=== PATIENT | male | born 1990 | race Caucasian/White ===

== ENCOUNTER 2025-01-24 17:16 | Emergency (ER) | payer BC ==
--- NOTE | 2025-01-24 19:03 | RAD REPORT ---
EXAMINATION: US LEFT LOWER EXTREMITY VENOUS DOPPLER CLINICAL INDICATION: [facility] MAIN Left Leg Pain;Swelling Bed Name: [id number] Y TECHNIQUE: Complete bilateral duplex sonography of the LEFT lower extremity veins was performed. The examination included compression for vein patency, color Doppler imaging and flow augmentation in response to distal compression of the distal external iliac, common femoral, femoral, popliteal, tibi al, and great and small saphenous veins. COMPARISON: No prior exam. FINDINGS: Duplex sonography testing of the veins of the LEFT lower extremity was performed. Color flow imaging shows all veins to be compressible with [id number] color filling. Pulsatile and phasic flow is present within all lower extremity deep and superficial veins examined. IMPRESSION: No evidence of deep venous thrombosis.
--- NOTE | 2025-01-24 19:08 | EDPHYS ---
Physician Documentation [facility] Name: Francisco Means Age: 34 yrs Sex: Male : 1990 Arrival Date: 01/24/2025 Time: 17:16 Bed 12 Private MD: ED Physician Jack Stallings HPI: 01/24 17:43 This 34 yrs old Male presents to ER via Ambulatory with complaints of Leg dr5 Swelling. 17:43 Onset: The symptoms/episode began/occurred 4 day(s) ago. Patient is a 34 year old male dr5 with no past medical history coming in with left knee and left lower leg pain that's been going on for the past 3 days after working out his legs at the gym. Patient denies shortness of breath, chest pain, abdominal pain, nausea, vomiting, diarrhea.. Historical: - Allergies: 17:24 No Known Allergies; dd2 - PMHx: 17:24 None; dd2 - PSHx: 17:24 None; dd2 - Immunization history:: Adult Immunizations up to date. - Infectious Disease History:: Denies. - Social history:: Smoking status: Patient reports the use of cigarette tobacco products, denies chronic smoking, but will smoke occasionally. ROS: 17:43 Constitutional: as per hpi dr5 Exam: 17:43 Constitutional: This is a well developed, well nourished patient who is awake, alert, dr5 and in no acute distress. Head/Face: Normocephalic, atraumatic. Eyes: Pupils equal round and reactive to light, extra-ocular motions intact. Lids and lashes normal. Conjunctiva and sclera are non-icteric and not injected. Cornea within normal limits. Periorbital areas with no swelling, redness, or edema. Neck: Trachea midline, no thyromegaly or masses palpated, and no cervical lymphadenopathy. Supple, full range of motion without nuchal rigidity, or vertebral point tenderness. No Meningismus. Chest/axilla: Normal chest wall appearance and motion. Nontender with no deformity. No lesions are appreciated. Cardiovascular: Regular rate and rhythm with a normal S1 and S2. Normal PMI, no JVD. No pulse deficits. Respiratory: Lungs have equal breath sounds bilaterally, clear to auscultation. No rales, rhonchi or wheezes noted. No increased work of breathing, no retractions or nasal flaring. Back: No spinal tenderness. No costovertebral tenderness. Full range of motion. Skin: Warm, dry with normal turgor. Normal color with no rashes, no lesions, and no evidence of cellulitis. Neuro: Awake and alert, GCS 15, oriented to person, place, time, and situation. Cranial nerves II-XII grossly intact. Motor strength 5/5 in all extremities. Sensory grossly intact. Cerebellar exam normal. Normal gait. 17:43 Musculoskeletal/extremity: Extremities: grossly normal except: noted in the medial aspect of left knee, medial aspect of left calf, left medial ankle and medial aspect of left foot: pain, swelling, ROM: no acute changes, intact in all extremities, Circulation is intact in all extremities. Sensation intact. Vital Signs: 17:24 BP 148 / 90; Pulse 95; Resp 16; Temp 98.6; Pulse Ox 100% ; Weight 77.11 kg; Height 5 dd2 ft. 11 in. ; Pain 4/10; 19:14 BP 137 / 85; Pulse 84; Resp 16; Pulse Ox 100% ; dd2 17:24 Body Mass Index 23.71 (77.11 kg, 180.34 cm) dd2 17:24 Pain Scale: Adult dd2 [place] Coma Score: 19:14 Eye Response: spontaneous(4). Verbal Response: oriented(5). Motor Response: obeys dd2 commands(6). Total: 15. MDM: 17:25 Medical Screening Exam initiated dr5 19:16 Differential Diagnosis Muscle strain, DVT, contusion, Alba's cyst. Data reviewed: dr5 vital signs, nurses notes, radiologic studies, ultrasound. Consideration of Admission/Observation Escalation of care including admission/observation considered. Escalation considered patient not have DVT in left leg. I considered the following discharge prescriptions or medication management in the emergency department I discussed and recommended Over The Counter medications. Care significantly affected by the following Social Determinants of Health: Poor access to healthcare and/or lack of insurance, Poor access to transportation, Problems related to employment. Counseling: I had a detailed discussion with the patient and/or guardian regarding the historical points, exam findings, and any diagnostic results supporting the discharge/admit diagnosis, the presence of at least one elevated blood pressure reading (>120/80) during this emergency department visit, radiology results, the need for outpatient follow up, for definitive care, a family practitioner, to return to the emergency department if symptoms worsen or persist or if there are any questions or concerns that arise at home. Special discussion: I discussed with the patient/guardian in detail that at this point there is no indication for admission to the hospital. It is understood, however, that if the symptoms persist or worsen the patient needs to return immediately for re-evaluation. Based on the history and exam findings, there is no indication for further emergent testing or inpatient evaluation. I discussed with the patient/guardian the need to see the primary care provider for further evaluation of the symptoms. ED course: No DVT noted on ultrasound. Recommended alternating Tylenol and Motrin as needed for pain and fever and swelling. All questions answered. Strict ER precautions given. 01/24 17:29 Order name: US Extremity Venous Unilateral Ltd; Complete Time: 19:08 dr5 Administered Medications: No medications were administered Disposition Summary: 01/24/25 19:08 Discharge Ordered Notes: Location: Home dr5 Condition: Stable dr5 Diagnosis - Pain in left leg dr5 Followup: dr5 - With: Emergency Department - When: As needed - Reason: Worsening of condition Followup: dr5 - With: Private Physician - When: 1 - 2 days - Reason: Recheck today's complaints, Continuance of care, Re-evaluation by your physician Discharge Instructions: - Discharge Summary Sheet dr5 - Musculoskeletal Pain dr5 - RICE Therapy for Routine Care of Injuries dr5 Forms: - Medication Reconciliation Form dr5 - Patient Portal Instructions dr5 - Leadership Thank You Letter dr5 Prescriptions: - Ibuprofen 800 mg Oral Tablet - take 1 tablet ORAL route every 12 hours As needed take with food; 20 tablet; dr5 Refills: 0, Product Selection Permitted - Cyclobenzaprine 10 mg Oral Tablet - take 1 tablet ORAL route every 8 hours As needed; 30 tablet; Refills: 0, dr5 Product Selection Permitted Signatures: Dispatcher [employer] GINNY HAYDEN RN RN dd2 Jose Eduardo Jiang, DEYVI-C MACHINERY MOVER-Cdr5
--- NOTE | 2025-01-24 19:08 | ER ---
Nurse's Notes [facility] [place] Name: Francisco Means Age: 34 yrs Sex: Male : 1990 Arrival Date: 01/24/2025 Time: 17:16 Bed 12 Private MD: Diagnosis: Pain in left leg Presentation: 01/24 17:22 Chief complaint: Patient states: PRESSURE AND SWELLING BEHIND LEFT KNEE DOWN TO LT dd2 ANKLE. REPORTS BEGAN ABOUT 2-3 DAYS AGO. Coronavirus screen: At this time, the client does not indicate any symptoms associated with coronavirus-19. Ebola Screen: No symptoms or risks identified at this time. Risk Assessment: Do you want to hurt yourself or someone else? Patient reports no desire to harm self or others. Onset of symptoms was January 21, 2025. 17:22 Method Of Arrival: Ambulatory dd2 17:22 Acuity: GILLES 3 dd2 17:24 Initial Sepsis Screen: Does the patient meet any 2 criteria? No. Patient's initial dd2 sepsis screen is negative. Does the patient have a suspected source of infection? No. Patient's initial sepsis screen is negative. Triage Assessment: 17:24 General: Appears in no apparent distress. uncomfortable, Behavior is calm, cooperative, dd2 appropriate for age. Pain: Complains of pain in left leg Pain currently is 4 out of 10 on a pain scale. Quality of pain is described as pressure. Musculoskeletal: Circulation, motion, and sensation intact. Range of motion: intact in all extremities, Reports PRESSURE LT LEG BEHIND KNEE TO LT ANKLE. Historical: - Allergies: 17:24 No Known Allergies; dd2 - PMHx: 17:24 None; dd2 - PSHx: 17:24 None; dd2 - Immunization history:: Adult Immunizations up to date. - Infectious Disease History:: Denies. - Social history:: Smoking status: Patient reports the use of cigarette tobacco products, denies chronic smoking, but will smoke occasionally. Screenin:14 [facility] ED Fall Risk Assessment (Adult) History of falling in the last 3 months, dd2 including since admission No falls in past 3 months (0 pts) Confusion or Disorientation No (0 pts) Intoxicated or Sedated No (0 pts) Impaired Gait No (0 pts) Mobility Assist Device Used No (0 pt) Altered Elimination No (0 pt) Score/Fall Risk Level 0 - 2 = Low Risk Oriented to surroundings, Maintained a safe environment, Educated pt \T\ family on fall prevention, incl call for assistance when getting out of bed, Assessed \T\ reinforced patient's understanding of fall precautions, Hourly rounding (assess needs \T\ fall precautionary measures) done. Abuse screen: Denies threats or abuse. Denies injuries from another. Nutritional screening: No deficits noted. Tuberculosis screening: No symptoms or risk factors identified. Assessment: 19:14 Reassessment: SEE TRIAGE ASSESSMENT. dd2 Vital Signs: 17:24 BP 148 / 90; Pulse 95; Resp 16; Temp 98.6; Pulse Ox 100% ; Weight 77.11 kg; Height 5 dd2 ft. 11 in. ; Pain 4/10; 19:14 BP 137 / 85; Pulse 84; Resp 16; Pulse Ox 100% ; dd2 17:24 Body Mass Index 23.71 (77.11 kg, 180.34 cm) dd2 17:24 Pain Scale: Adult dd2 [place] Coma Score: 19:14 Eye Response: spontaneous(4). Verbal Response: oriented(5). Motor Response: obeys dd2 commands(6). Total: 15. ED Course: 17:21 Patient arrived in ED. gm2 17:24 Triage completed. dd2 17:24 Arm band placed on right wrist. dd2 17:25 Jose Eduardo Jiang FNP-C [facility]5 17:25 Jack Stallings MD is Attending Physician. dr5 18:25 US Extremity Venous Unilateral Ltd In Process Unspecified. EDMS 19:14 Patient has correct armband on for positive identification. Bed in low position. Call dd2 light in reach. Provided Education on: D/C EDUCATION. Client placed on continuous cardiac and pulse oximetry monitoring. NIBP monitoring applied. Door closed. Noise minimized. Warm blanket given. Pillow given. Verbal reassurance given. 19:14 No provider procedures requiring assistance completed. Patient did not have IV access dd2 during this emergency room visit. Administered Medications: No medications were administered Medication: 19:14 VIS not applicable for this client. dd2 Outcome: 19:08 Discharge ordered by . dr5 19:14 Discharged to home ambulatory, dd2 19:14 Condition: stable 19:14 Discharge instructions given to patient, Instructed on discharge instructions, follow up and referral plans. medication usage, Demonstrated understanding of instructions, follow-up care, medications, Prescriptions given X 2, 19:16 Patient left the ED. dd2 Signatures: Dispatcher [employer] Jennifer Gonzalez gm2 GINNY BECKWITH RN RN dd2 Jose Eduardo Jiang, WELCOME HOSTESS-C WELCOME HOSTESS-Cdr5 Corrections: (The following items were deleted from the chart) 19:14 17:24 Musculoskeletal: Reports PRESSURE LT LEG BEHIND KNEE TO LT ANKLE dd2 dd2
[2025-01-24 19:28] VITALS: TEMP 98.6; O2SAT 100
[2025-01-24 19:29] VITALS: BP 137/85
== END 2025-01-24 19:16 | disposition home or self-care (01) ==
LOC: ER 17:16
DX: M79.605 Pain in left leg (principal); R22.42 Localized swelling, mass and lump, left lower limb; F17.210 Nicotine dependence, cigarettes, uncomplicated
CPT/HCPCS: 93971; 99283